=== PATIENT | female | born 1945 | race Caucasian/White ===

== ENCOUNTER → 2016-11-07 | Outpatient (CLI) | payer OTHER | LOC: FIMAGING 14:53 | PROVIDERS: ATTEND Internal Medicine | DX: Z12.31 Encounter for screening mammogram for malignant neoplasm of breast (principal) | CPT/HCPCS: G0202 ==

== ENCOUNTER 2017-05-14 15:13 | Observation (INO) | payer OTHER ==
[2017-05-14] MEDS ORDERED: DILTIAZEM 25 MG/5 ML VIAL IVP ONE ×2 (15:49→17:56)
--- NOTE | 2017-05-14 15:49 | CPEKG ---
Heart Rate: 156 RR Interval: 385 QRSD Interval: 84 QT Interval: 288 QTC Interval: 464 QRS Alpine: 26 T Wave Alpine: 198 EKG Severity - ABNORMAL ECG - EKG Impression: ATRIAL FIBRILLATION WITH RAPID V-RATE EKG Impression: PROBABLE POSTERIOR INFARCT EKG Impression: REPOLARIZATION ABNORMALITY, PROB RATE RELATED Electronically Signed By: Omer Mason 14-May-2017 15:52:36
--- NOTE | 2017-05-14 15:52 | EDPHY ---
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 She was in her normal state is health and was preparing to get an upper endoscopy for chronic reflux symptoms as well as a colonoscopy for screening purposes. After she was given the Versed she developed atrial fibrillation. The patient states that she does not feel abnormal. She does not feel palpitations. She does not feel chest pain shortness of breath. The procedures were aborted and she was sent to the emergency department. Her vital signs have remained stable. REVIEW OF SYSTEMS: Constitutional: denies: chills, fever, recent illness, recent injury EENTM: denies: blurred vision, double vision, nose congestion Respiratory: denies: cough, shortness of breath Cardiac: denies: chest pain, irregular heart rate, lightheadedness, palpitations Gastrointestinal/Abdominal: denies: abdominal pain, diarrhea, nausea, vomiting, blood streaked stools Genitourinary: denies: dysuria, frequency, hematuria, pain Musculoskeletal: denies: joint pain, muscle pain Skin: denies: lesions, rash, jaundice, bruising Neurological: denies: headache, numbness, paresthesia, tingling, dizziness, weakness Hematologic/Lymphatic: denies: blood clots, easy bleeding, easy bruising Immunologic/allergic: denies: HIV/AIDS, transplant EXAM: GENERAL: Well-appearing, well-nourished and in no acute distress. HEAD: Atraumatic, normocephalic. EYES: Pupils equal round and reactive to light, extraocular movements intact, sclera anicteric, conjunctiva are normal. ENT: TMs normal, nares patent, oropharynx clear without exudates. Moist mucous membranes. NECK: Normal range of motion, supple without lymphadenopathy or JVD. LUNGS: Breath sounds clear to auscultation bilaterally and equal. No wheezes rales or rhonchi. HEART: Tachycardic and irregular without murmurs, rubs or gallops. ABDOMEN: Soft, nontender, normoactive bowel sounds. No guarding, no rebound. No masses appreciated. BACK: No CVA tenderness, no spinal tenderness, step-offs or deformities EXTREMITIES: Normal range of motion, no pitting or edema. No clubbing or cyanosis. NEUROLOGICAL: Cranial nerves II through XII grossly intact. Normal speech, normal gait. 5/5 strength, normal movement in all extremities, normal sensation PSYCH: Normal mood, normal affect. SKIN: Warm, dry, normal turgor, no visible rashes or lesions. Source: Patient Exam Limitations: No limitations - Personal History Current Tetanus/Diphtheria Vaccine: Unsure Current Tetanus Diphtheria and Acellular Pertussis (TDAP): Unsure - Medical/Surgical History Hx Asthma: No Hx Chronic Respiratory Disease: No Hx Diabetes: No Hx Cardiac Disease: No Hx Renal Disease: No Hx Cirrhosis: No Hx Alcoholism: No Hx HIV/AIDS: No Hx Splenectomy or Spleen Trauma: No Other PMH: bigeminy - Family History Significant Family History: No pertinent family hx - Social History Smoking Status: Never smoked Alcohol Use: Sober Drug Use: None Constitutional: Initial Vital Signs Temperature (C) 37.0 C 05/14/17 15:27 Heart Rate 99 05/14/17 15:27 Respiratory Rate 16 05/14/17 15:27 Blood Pressure 112/71 05/14/17 15:27 O2 Sat (%) 97 05/14/17 15:27 O2 Delivery Mode Room Air O2 (L/minute) 2 Allergies/Adverse Reactions: No Known Allergies Allergy (Unverified 05/14/17 15:27) Home Medications: Medication Instructions Recorded Atorvastatin Calcium [Lipitor 20 20 mg PO HS 05/14/17 mg (*)] Doxylamine Succinate [Sleep Aid] 25 mg PO PRN PRN 05/14/17 Melatonin [Melatonin 5 mg] 5 mg PO HS PRN 05/14/17 Medical Decision Making - Diagnostics EKG Interpretation: An EKG obtained and was read and documented in trace view. Please see trace view for full reading and report. Atrial fibrillation rate of 150s ED Course/Re-evaluation: I spoke again with Dr. Jean. He states that the patient was in sinus rhythm during the prep on the monitor and then went into atrial fibrillation after the Versed was given. The patient's AFib has therefor been present last 48 hr and she is eligible for conversion here in the emergency department without echocardiogram. Dr. Jean called back and stated that he cannot confirm for sure that the patient was in sinus rhythm previously. 6:30 p.m. patient's heart rate remains around 110 and atrial fibrillation. She remains asymptomatic. I spoke with Dr. Mueller who will admit her. I will start her on a diltiazem drip and order Lovenox. Differential Diagnosis: Partial list of the Differential diagnosis considered include but were not limited to; atrial fibrillation, atrial flutter, SVT and although unlikely based on the history and physical exam, I also considered acute coronary disease , PE, infection. - Data Points Laboratory Results: Laboratory Results 05/14/17 15:40 05/14/17 15:40 05/14/17 05/14/17 05/14/17 15:40 15:40 15:40 WBC RBC Hgb Hct MCV MCH MCHC RDW Plt Count MPV Neut % (Auto) Lymph % (Auto) [place] % (Auto) Eos % (Auto) Baso % (Auto) Nucleat RBC Rel Count Absolute Neuts (auto) Absolute Lymphs (auto) Absolute Monos (auto) Absolute Eos (auto) Absolute Basos (auto) Absolute Nucleated RBC Immature Gran % Immature Gran # PT INR APTT Sodium 142 mEq/L mEq/L (135-145) Potassium 3.8 mEq/L mEq/L (3.5-5.2) Chloride 108 mEq/L mEq/L (97-110) Carbon Dioxide 20 mEq/l L mEq/l (22-31) Anion Gap 14 mEq/L mEq/L (8-16) BUN 10 mg/dL mg/dL (7-23) Creatinine 0.8 mg/dL mg/dL (0.6-1.0) Estimated GFR > 60 Glucose 93 mg/dL mg/dL (70-100) Calcium 10.0 mg/dL mg/dL (8.5-10.4) Total Bilirubin 1.4 mg/dL mg/dL (0.1-1.4) Conjugated Bilirubin 0.4 mg/dL mg/dL (0.0-0.5) Unconjugated Bilirubin 1.0 mg/dL mg/dL (0.0-1.1) AST 36 IU/L IU/L (14-46) ALT 44 IU/L IU/L (9-52) Alkaline Phosphatase 71 IU/L IU/L (38-126) Troponin I < 0.012 ng/mL ng/mL (0.000-0.034) NT-Pro-B Natriuret Pep 158 pg/mL H pg/mL (0-125) Total Protein 7.3 g/dL g/dL (6.3-8.2) Albumin 4.5 g/dL g/dL (3.5-5.0) Lipase 151 IU/L IU/L (23-300) TSH 2.000 uIU/mL uIU/mL (0.465-4.680) 05/14/17 05/14/17 15:40 15:40 WBC 6.43 10^3/uL 10^3/uL (3.80-9.50) RBC 4.95 10^6/uL 10^6/uL (4.18-5.33) Hgb 14.9 g/dL g/dL (12.6-16.3) Hct 44.5 % % (38.0-47.0) MCV 89.9 fL fL (81.5-99.8) MCH 30.1 pg pg (27.9-34.1) MCHC 33.5 g/dL g/dL (32.4-36.7) RDW 12.3 % % (11.5-15.2) Plt Count 260 10^3/uL 10^3/uL (150-400) MPV 9.8 fL fL (8.7-11.7) Neut % (Auto) 52.2 % % (39.3-74.2) Lymph % (Auto) 37.2 % % (15.0-45.0) [place] % (Auto) 7.6 % % (4.5-13.0) Eos % (Auto) 2.2 % % (0.6-7.6) Baso % (Auto) 0.5 % % (0.3-1.7) Nucleat RBC Rel Count 0.0 % % (0.0-0.2) Absolute Neuts (auto) 3.36 10^3/uL 10^3/uL (1.70-6.50) Absolute Lymphs (auto) 2.39 10^3/uL 10^3/uL (1.00-3.00) Absolute Monos (auto) 0.49 10^3/uL 10^3/uL (0.30-0.80) Absolute Eos (auto) 0.14 10^3/uL 10^3/uL (0.03-0.40) Absolute Basos (auto) 0.03 10^3/uL 10^3/uL (0.02-0.10) Absolute Nucleated RBC 0.00 10^3/uL 10^3/uL (0-0.01) Immature Gran % 0.3 % % (0.0-1.1) Immature Gran # 0.02 10^3/uL 10^3/uL (0.00-0.10) PT 13.3 SEC SEC (12.0-15.0) INR 0.99 (0.83-1.16) APTT 30.1 SEC SEC (23.0-38.0) Sodium Potassium Chloride Carbon Dioxide Anion Gap BUN Creatinine Estimated GFR Glucose Calcium Total Bilirubin Conjugated Bilirubin Unconjugated Bilirubin AST ALT Alkaline Phosphatase Troponin I NT-Pro-B Natriuret Pep Total Protein Albumin Lipase TSH Medications Given: Discontinued Medications Diltiazem HCl (Cardizem 25 Mg/5 Ml Vial) 10 mg IVP EDNOW ONE Stop: 05/14/17 15:50 Last Admin: 05/14/17 16:27 Dose: Not Given Diltiazem HCl (Cardizem) 10 mg IV EDNOW ONE Stop: 05/14/17 16:01 Last Admin: 05/14/17 16:03 Dose: 10 mg Diltiazem HCl (Cardizem 25 Mg/5 Ml Vial) 10 mg IVP EDNOW ONE Stop: 05/14/17 17:57 Last Admin: 05/14/17 18:08 Dose: 10 mg Enoxaparin Sodium (Lovenox) 80 mg SC EDNOW ONE Stop: 05/14/17 18:35 Last Admin: 05/14/17 19:16 Dose: 80 mg Diltiazem/Dextrose (Diltiazem 125mg/125ml (Premix)) 125 mls @ 0 mls/hr IV EDNOW ONE; Titrate PRN Reason: Protocol Stop: 05/14/17 19:01 Last Admin: 05/14/17 19:18 Dose: 125 mls Departure - Departure Disposition: [facility] Clinical Impression: Atrial fibrillation Qualifiers: Atrial fibrillation type: unspecified Qualified Code(s): I48.91 - Unspecified atrial fibrillation Condition: Fair
[2017-05-14 15:56] LABS: PLATELET COUNT 260 10^3/uL (150-400)
[2017-05-14] MEDS ORDERED: DILTIAZEM 50 MG/10 ML VIAL IV ONE (16:00)
[2017-05-14 16:06] LABS: INR 0.99 (0.83-1.16); PROTIME(PATIENT) 13.3 SEC (12.0-15.0)
[2017-05-14] MEDS ORDERED: DILTIAZEM 125 MG in D5W 125 ML IV ONE (18:33)
[2017-05-14] MEDS ORDERED: ENOXAPARIN 80 MG/0.8 ML SYR SC ONE (18:34)
[2017-05-14] MEDS ORDERED: ACETAMINOPHEN 325 MG TAB PO PRN (18:41)
[2017-05-14] MEDS ORDERED: ONDANSETRON 4 MG/2 ML VIAL IVP PRN (18:41)
[2017-05-14] MEDS ORDERED: ONDANSETRON DISINTEGRATING 4 MG TAB PO PRN (18:41)
[2017-05-14] MEDS ORDERED: DILTIAZEM HCL/D5W 125 ML IV ONE (19:00)
[2017-05-14] MEDS ORDERED: DILTIAZEM 125 MG in D5W 125 ML IV SCH (19:15)
--- NOTE | 2017-05-14 20:55 | GHP ---
[f rep st] HISTORY AND PHYSICAL DATE OF ADMISSION: 05/14/2017 CHIEF COMPLAINT: New onset atrial fibrillation with RVR. HISTORY OF PRESENT ILLNESS: A 71-year-old female with a history of hyperlipidemia, PVCs years ago, jose phan was sent over from GI when noted to be in atrial fibrillation with RVR. She was to undergo an EGD and colonoscopy today. She denies any symptoms including chest pain, shortness of breath, palpitati ons, dizziness, or lightheadedness. She is very active. She walks at least an hour and a half a day , skis, never has any symptoms, and is currently symptom free. No fevers, chills, or sweats. No cou gh. No lower extremity edema. No PND or pillow orthopnea. REVIEW OF SYSTEMS: I completed a 10-point review of systems. Negative except noted in HPI. PAST MEDICAL HISTORY: PVCs a long time ago. Hyperlipidemia. PAST SURGICAL HISTORY: Appendectomy, tubal ligation, and bunion. MEDICATIONS: Lipitor, aspirin. FAMILY HISTORY: Father with an IL at age 61. Brother with an IL. Another brother at age 63 of IL. SOCIAL HISTORY: Lives in [place] with her son and grandson. Drinks occasional wine. No tobacco or illicits. HOME MEDICATIONS: Aspirin and Lipitor. ALLERGIES: No known drug allergies. PHYSICAL EXAMINATION: VITAL SIGNS: Temperature 36.9, blood pressure 112/82, heart rate is 125, resp irations 20, 94% on room air. GENERAL: Well-appearing female sitting up in bed, smiling. No acute distress. HEENT: PERRLA. EOMI. Oropharynx clear. CV: Irregularly irregular, tachycardic. No mu rmurs, gallops, rub. No lower extremity edema. LUNGS: Clear. No crackles or wheezing. ABDOMEN: Soft, nontender, nondistended. Positive bowel sounds. : No Colbert. MUSCULOSKELETAL: 5/5 upper a nd lower extremity strength. NEURO: 2 through 12 intact. PSYCH: Alert and oriented x3. LABS: WBC 6, hemoglobin 14, hematocrit 44, platelets 260. Coags within normal. Sodium 142, potassi um 3.8, chloride 108, carbon dioxide 20, BUN 10, creatinine 0.8. LFTs within normal. Troponin less than 0.012. BNP is 158. TSH is 2. EKG is personally reviewed by me showing atrial fibrillation wit h a heart rate of 156. ASSESSMENT/PLAN: 1. Acute atrial fibrillation with rapid ventricular response: This appears to be acute as the patie nt has not had prior symptoms and is currently not having symptoms. Troponin and BNP are negative. Will be started on IV diltiazem drip, monitored in the PCU. Will start Lovenox. TSH is within sara l. 2. Her CHADS-VASc score is 2, which is appropriate for chronic anticoagulation. I discussed options of Coumadin versus Xarelto, and she would like to think about it. 3. Hyperlipidemia, on Lipitor. 4. Diet: Regular. 5. Deep vein thrombosis prophylaxis, on Lovenox. DISPOSITION: Patient warrants observation admission given acute atrial fibrillation with RVR, requir ing IV diltiazem and telemetry. /[id number]/MODL
[2017-05-14] MEDS ORDERED: DILTIAZEM HCL/D5W 125 ML IV SCH (22:30)
[2017-05-14] MEDS ORDERED: DOXYLAMINE SUCCINATE 25 MG PO PRN (23:38)
[2017-05-14] MEDS ORDERED: NON-FORMULARY NEW DRUG (Melatonin [Melatonin 5 Mg] 5 MG) PO PRN (23:38)
[2017-05-15 08:41] VITALS: TEMP 97.3
[2017-05-15] MEDS ORDERED: ENOXAPARIN 80 MG/0.8 ML SYR SC SCH (09:00)
[2017-05-15 11:42] VITALS: BP 112/63; PULSE 67; RESP 18; O2SAT 92
--- NOTE | 2017-05-15 13:05 | ECHO ---
[email or web address] [address] [address] Main: [phone] Fax: [email or web address] Echocardiogram Name: GABI COOPER MR#: [id number] Study Date: 05/15/2017 Study Time: 09:52 AM Date of : 1945 Age: 71 year(s) Height: 175.3 cm (69 in.) Weight: 74.84 kg (165 lb.) BSA: 1.9 m2 Gender: Female Examination: Echo Indication: New onset A Fib Image Quality: Contrast: Requested by: Betty Mueller BP: 107 mmHg/61 mmHg Heart Rate: Rhythm: Indication: New onset A Fib Procedure Staff Tank Car Repairer: Salud Cheung RDCS Reading Physician: Gene Limon Requesting Provider: Conclusions: Normal size left ventricle. Mild concentric LV hypertrophy. Normal global systolic LV function. The ejection fraction is estimated to be 65-70 %. No regional wall motion abnormality. Normal size right ventricle. Trivial mitral valve regurgitation. The aortic valve is normal in appearance and function. Trivial tricuspid valve regurgitation. Measurements: Chambers Valvular Assessment AV/MV Valvular Assessment TV/PV Normal Normal Normal Name Value Range Name Value Range Name Value Range IVSd (2D): 0.8 cm (0.6 cm-1.1 AV Vmax: 1.72 m/s (1 m/s-1.7 TR Vmax: 1.96 mm/s ( - ) cm) m/s) TR PGmax: 15 mmHg ( - ) LVDd (2D): 5.0 cm (3.9 cm-5.3 AV maxP mmHg ( - ) syst. PAP: 20 mmHg ( - ) cm) AV meanP mmHg ( - ) LVDs (2D): 2.9 cm (2.1 cm-4 MV E Vmax: 0.90 m/s ( - ) cm) MV A Vmax: 1.00 m/s ( - ) LVPWd (2D): 0.8 cm ( - ) MV E/A: 0.90 ( - ) EF Range: 65-70 % Continued Measurements: Chambers Valvular Assessment AV/MV Valvular Assessment TV/PV Name Value Name Value Name Value LADs: 3.8 cm MV E/E' Septal: 15.70 CVP (est.): 5 mmHg LADs Lon.8 cm MV E/E' Lateral: 17.80 Patient: GABI COOPER Study Date: 05/15/2017 Page 1 of 2 09:52 AM LA Area: 15.4 cm2 Findings: Left Ventricle: Normal size left ventricle. Mild concentric LV hypertrophy. Normal global systolic LV function. The ejection fraction is estimated to be 65-70 %. No regional wall motion abnormality. Right Ventricle: Normal size right ventricle. Left Atrium: The left atrium is normal in size. Right Atrium: The right atrium is normal in size. Mitral Valve: Mild mitral annular calcification. Trivial mitral valve regurgitation. Aortic Valve: The aortic valve is normal in appearance and function. Tricuspid Valve: The tricuspid valve is normal in appearance and function. Trivial tricuspid valve regurgitation. The pulmonary artery pressure is normal. Pulmonic Valve: Pulmonary valve not well visualized. Aorta: The aorta is normal. Pericardium: Trivial anterior pericardial effusion. (No Signature Object) Patient: GABI COOPER Study Date: 05/15/2017 Page 2 of 2 09:52 AM D:_[id number]
[2017-05-15] MEDS ORDERED: METOPROLOL SUCCINATE XR 25 MG TAB PO SCH (13:30)
--- NOTE | 2017-05-15 15:30 | ASDISCHSUM ---
Discharge Information Plan Status:Home with No Needs Medically Cleared to Leave:05/14/2017 Discharge Date:05/15/2017 01:50 PM CM D/C Disposition:Home, Routine, Self-Care ADT D/C Disposition:Home, Routine, Self-Care Projected Discharge Date:05/15/2017 01:50 PM Transportation at D/C: Discharge Delay Reason: Follow-Up Date:05/15/2017 01:50 PM Discharge Slot: Final Diagnosis: Placement Information Patient Contact Information Contact Name:NELI Relationship:Daughter Address: Work Phone: City: [facility] Phone: State/[employer] [employer] Code: Email: Financial Information Financial Class:Medicare Advantage Plans Primary Plan Desc:[employer] CHO[employer] PPO MEDICARE Primary Plan Number:[id number] Secondary Plan Desc: Secondary Plan Number: Assessment Information Intervention Information Intervention Type:*YOVANI-Charles Date of Service:05/15/2017 10:03 AM Patient Type:Observation Staff Member:Shyla Mcgill Hours: Discipline: Severity: Comment:
--- NOTE | 2017-05-15 19:45 | GDS ---
[f rep st] DISCHARGE SUMMARY DISCHARGE DIAGNOSIS: Paroxysmal atrial fibrillation. HISTORY: The patient is a 71-year-old female, who presented for EGD and colonoscopy, and when she wa s put on the monitor for anesthesia, she was found to be in atrial fibrillation/rapid ventricular res ponse. She does not have any obvious symptoms other than perhaps increased fatigue with attempts at hiking over the last couple of weeks. She was admitted to the hospital, placed on diltiazem drip. S he spontaneously converted back to normal sinus rhythm overnight. Her echocardiogram was unremarkabl e. She was started on Eliquis for stroke prevention, as she has a CHADS2 Vasc score of 2. She was s tarted on a low-dose beta joshua. She will follow up as an outpatient with Cardiology in the next 1 -2 weeks. DISCHARGE MEDICATIONS: Please see computerized record for full detailed list. New medications: 1. Metoprolol-XL 25 mg p.o. daily. 2. Eliquis 5 mg p.o. b.i.d. ADDITIONAL DISCHARGE INSTRUCTIONS: Follow up with [facility] in 1-2 weeks. Patient was seen and examined by me on the day of discharge. /[id number]/MODL
[2017-05-15] MEDS ORDERED: APIXABAN 5 MG TAB PO SCH (21:00)
[2017-05-15] MEDS ORDERED: ATORVASTATIN CALCIUM 20 MG TAB PO SCH (21:00)
== END 2017-05-15 13:50 | disposition home or self-care (01) ==
LOC: F2W 22:11
PROVIDERS: ADMIT Internal Medicine; ATTEND Internal Medicine
DX: I48.0 Paroxysmal atrial fibrillation (principal)
CPT/HCPCS: 93005; 93306; G0378; J1650; 96374

== ENCOUNTER 2018-01-22 13:48 | Emergency (ER) | payer OTHER ==
--- NOTE | 2018-01-22 14:20 | EDPHY ---
H & P Smoking Status: Former smoker <Mt Ramirez - Last Filed: 01/22/18 14:56> <Omer Mason - Last Filed: 01/22/18 16:27> Time Seen by Provider: 01/22/18 14:04 HPI/ROS: Chief complaint. Fall HPI. Patient is a 72-year-old female with a head injury. She was hiking on a trail in coming down some stairs. She had a misstep and fell over forward. She struck her head on a rock. Did not lose consciousness. She also has neck pain. She is on Eliquis for atrial fibrillation. Currently she has no headache or visual change. She did sustain abrasions to the left forearm and dorsum of the left hand. No chest injury or trouble breathing. No abdominal pain. No back pain below her neck. Injury occurred just prior to arrival ROS 10 systems were reviewed and negative with the exception of the elements mentioned in the history of present illness (Mt Ramirez) Past Medical/Surgical History: Atrial fibrillation, hysterectomy (Mt Ramirez) Social History: Single, nonsmoker, no alcohol (Mt Ramirez) Physical Exam: General Appearance: Alert pleasant well-developed female mild distress vital signs are stable Eyes: Pupils equal and round no pallor or injection. ENT, no hemotympanum or Nguyen sign. No oral pharyngeal or dental trauma Respiratory: There are no retractions, lungs are clear to auscultation. Cardiovascular: Regular rate and rhythm. Gastrointestinal: Abdomen is soft and nontender, no masses, bowel sounds normal. Neurological: Awake and alert, sensory and motor exams grossly normal. Skin: Abrasions to left forearm and dorsum left hand Musculoskeletal: Neck is diffusely tender Extremities symmetrical, full range of motion. Psychiatric: Patient is oriented X 3, there is no agitation. (Mt Ramirez Alex) Constitutional: Initial Vital Signs Temperature (C) 36.5 C 01/22/18 13:53 Heart Rate 43 L 01/22/18 13:53 Respiratory Rate 16 01/22/18 13:53 Blood Pressure 157/84 H 01/22/18 13:53 O2 Sat (%) 95 01/22/18 13:53 O2 Delivery Mode Room Air Allergies/Adverse Reactions: No Known Allergies Allergy (Unverified 01/22/18 13:51) Home Medications: Medication Instructions Recorded Atorvastatin Calcium [Lipitor 20 20 mg PO HS 05/14/17 mg (*)] Doxylamine Succinate [Sleep Aid] 25 mg PO PRN PRN 05/14/17 Melatonin [Melatonin 5 mg] 5 mg PO HS PRN 05/14/17 Apixaban [Eliquis] 5 mg PO BID #60 tab 05/15/17 Metoprolol Succinate Xr [Toprol Xl 25 mg PO DAILY #30 tab 05/15/17 25 mg (*)] Ascorbic Acid [Vitamin C 500 mg 1,000 mg PO DAILY 10/12/17 (*)] Aspirin EC [Aspirin EC 81 mg (*)] 81 mg PO DAILY 10/12/17 Cholecalciferol Vit D3 [Vitamin D3 5,000 units PO DAILY 10/12/17 (*)] Herbals/Supplements -Info Only 1 ea PO DAILY 10/12/17 Omeprazole 40 mg PO DAILY 10/12/17 Psyllium Husk (with Sugar) 1 each PO DAILY 10/12/17 [Metamucil Packet] Vitamin E Acetate [VITAMIN E] 400 unit PO DAILY 10/12/17 Medical Decision Making <Mt Ramirez S - Last Filed: 01/22/18 14:56> - Diagnostics Imaging: Discussed imaging studies w/ glassware verifier Radiologist <Omer Mason - Last Filed: 01/22/18 16:27> - Diagnostics Imaging Results: Imaging Impressions Cervical Spine CT 01/22/18 14:28 Impression: 1. No acute posttraumatic abnormality identified. If there is persistent pain or neurologic deficit, consider MRI and/or flexion and extension views if clinically indicated. 2. Multilevel degenerative change, most prominent from C5-C7. 3. Grade 1 anterolisthesis of C4 on C5. Findings discussed with Omer Mason M.D., on January 22, [address] 01/22/18 14:28 Impression: 1. No acute intracranial findings. 2. Diffuse cerebral atrophy with periventricular and subcortical low attenuation consistent with chronic microvascular ischemic gliosis. Findings discussed with Omer Mason 01/22/2018 at 15:22. ED Course/Re-evaluation: 3:20 p.m. We discussed the results of the patient's head and neck CT. She and her friend are greatly relieved. Her abrasions have been dressed. She declines further workup or testing at this time. She is eager to leave. A noticed that the patient was bradycardic on arrival. Her heart rate now is in the 60s. She states that it is common for her rate to be in the 40s and 50s. She is asymptomatic. She did not faint to have syncope symptoms today. She states that she has to have atrial fibrillation and is taking Eliquis and metoprolol and has had several physicians common about her bradycardia but does not bother her. (Omer Mason) Differential Diagnosis: Partial list of the Differential diagnosis considered include but were not limited to; head injury, neck injury, intracranial bleeding, abrasion and although unlikely based on the history and physical exam, I also considered the syncope, the extremity fracture. I discussed these differential diagnoses and the plan with the patient as well as the usual and expected course. The patient understands that the diagnosis is provisional and that in medicine we are not always correct and that further workup is often warranted. Usual and customary warnings were given. All of the patient's questions were answered. The patient was instructed to return to the emergency department should the symptoms at all worsen or return, otherwise to followup with the physician as we discussed. (Omer Mason) Care Turn Over: Care to Dr. Mason at 3:00 p.m. (Mt Ramirez) Departure <Mt Ramirez - Last Filed: 01/22/18 14:56> <Omer Mason - Last Filed: 01/22/18 16:27> - Departure Disposition: Home, Routine, Self-Care Clinical Impression: Abrasion, multiple sites Fall Qualifiers: Encounter type: initial encounter Qualified Code(s): W19.XXXA - Unspecified fall, initial encounter Condition: Fair Instructions: Abrasion (ED), Fall Prevention (ED) Referrals: Mt Wooten MD [Primary Care Provider] - 2-3 days, if not improved
[2018-01-22 15:33] VITALS: BP 193/75
== END 2018-01-22 15:37 | disposition home or self-care (01) ==
DX: S09.90XA Unspecified injury of head, initial encounter (principal); S50.812A Abrasion of left forearm, initial encounter; S60.512A Abrasion of left hand, initial encounter; I48.91 Unspecified atrial fibrillation; Z79.01 Long term (current) use of anticoagulants; W10.8XXA Fall (on) (from) other stairs and steps, initial encounter; Y92.828 Other wilderness area as the place of occurrence of the external cause; Y93.01 Activity, walking, marching and hiking; Y99.9 Unspecified external cause status

== ENCOUNTER → 2018-08-14 | Outpatient (CLI) | payer OTHER ==
[~2018-08-14] MED LIST: DEPO METHYLPREDNISOLONE 80 MG/ML SDV ONE; IOPAMIDOL (ISOVUE 370) 100 ML BTL IV ONE; LIDOCAINE 1% 300 MG/30 ML SDV ONE; ROPIVACAINE HCL 150 MG/30 ML INJ ONE
== END ==
LOC: FIMAGING 10:11
PROVIDERS: ATTEND Orthopaedic Surgery
PROC: 3E0U3BZ Introduction of Anesthetic Agent into Joints, Percutaneous Approach (ICD-10-PCS; principal; 2018-08-14)
DX: M16.11 Unilateral primary osteoarthritis, right hip (principal)
CPT/HCPCS: 20610; 77002; J1040; J2795; Q9967